=== PATIENT | female | born 1990 | race Caucasian/White ===

== ENCOUNTER 2019-11-21 12:37 | Emergency (ER) | payer OTHER ==
[~2019-11-21] VITALS: Ht 160 cm; Wt 56.7 kg
[2019-11-21] MEDS ORDERED: ZYRTEC10 MG PO (14:17)
[2019-11-21] MEDS ORDERED: PREDNISONE 20 M20 MG PO (14:17)
[2019-11-21 14:31] VITALS: BP 120/80
== END 2019-11-21 14:31 | disposition home or self-care (01) ==
LOC: ER 12:37
DX: T78.1XXA Other adverse food reactions, not elsewhere classified, initial encounter (principal); H57.89 Other specified disorders of eye and adnexa; R63.1 Polydipsia; Z91.013 Allergy to seafood; X58.XXXA Exposure to other specified factors, initial encounter